=== PATIENT | male | born 1955 ===

== ENCOUNTER 2024-02-18 06:17 | Day surgery (SDC) | payer OTHER ==
[2024-02-11 11:56] LABS: PH,URINE 5.5 (5.0-8.0); URINE APPEARANCE Clear; URINE BILIRRUBIN Negative (NEGATIVE); URINE BLOOD Negative; URINE COLOR Yellow; URINE GLUCOSE Negative (NEGATIVE); URINE LEUKOCYTE Negative; URINE NITRATE Negative; URINE PROTEIN Trace (NEGATIVE); URINE UROBILINOGEN 0.2 E.U./dl
[2024-02-11 11:57] LABS: URINE WBC 2.7 uL (0.0-23.2)
[2024-02-11 12:03] LABS: URINE BACTERIA 3.7 uL (0.0-1933); URINE EPITHELIAL CELLS 1.3 uL (0.0-38.8); URINE RBC 1.7 uL (0.0-20.8)
[2024-02-11 12:10] LABS: HEMATOCRIT 42.7 % (39.0-48.0); HEMOGLOBIN 14.3 g/dL (13-16.00); MEAN CELL VOLUME 89.5 fL (80.0-100.00); MEAN CORPUSCULAR HEMOGLOBIN 29.9 pg (27.00-32.0); MEAN CORPUSCULAR HGB CONC 33.4 g/dl (32.0-36.0); PLATELET COUNT 227 K/uL (150-450); RED BLOOD COUNT 4.77 M/uL (4.00-6.00); RED CELL DISTRIBUTION WIDTH 14.5 % (11.5-14.5)
[2024-02-11 12:34] LABS: INR 1.04; PARTIAL THROMBOPLASTIN TIME 29.1 SECONDS (22.0-34.0)
[2024-02-11 12:36] LABS: PROTHROMBIN TIME 10.9 SECONDS (9.0-11.5)
[2024-02-11 12:40] LABS: ALBUMIN 4.1 gm/dL (3.4-5.0); BILIRUBIN TOTAL 0.57 mg/dL (0.3-1.2); CALCIUM 9.4 mg/dL (8.5-10.1); CREATININE SERUM 0.94 mg/dL (0.70-1.30); GFR 79.81; GLOBULINA 4.2 G/DL (2.4-3.5); POTASSIUM 5.02 mEq/L (3.5-5.1); TOTAL PROTEIN 8.3 gm/dL (6.4-8.2)
[2024-02-18] MEDS ORDERED: CEFAZOLIN SODIUM 1,000 MG VIAL ONE ×2 (11:14→15:15)
[2024-02-18] MEDS ORDERED: CEFAZOLIN SODIUM 1,000 MG VIAL IV ONE (13:45)
[2024-02-18] MEDS ORDERED: CEFAZOLIN SODIUM 1,000 MG VIAL IV SCH (14:45)
[2024-02-18] MEDS ORDERED: FAMOTIDINE/PF 20 MG/10 ML SYRINGE IV SCH (14:45)
[2024-02-18] MEDS ORDERED: FAMOTIDINE/PF 20 MG/2 ML VIAL ONE (15:15)
[2024-02-18] MEDS ORDERED: ONDANSETRON HCL 2 MG/ML VIAL IV ONE (16:05)
[2024-02-18] MEDS ORDERED: MORPHINE SULFATE 4 MG/ML VIAL IV ONE (16:10)
[2024-02-18] MEDS ORDERED: ONDANSETRON HCL 2 MG/ML VIAL ONE (16:15)
== END 2024-02-18 17:55 | disposition home or self-care (01) ==
LOC: CIR.AMB 06:17
PROVIDERS: ATTEND Specialist
DX: K40.90 Unilateral inguinal hernia, without obstruction or gangrene, not specified as recurrent (principal)
CPT/HCPCS: 49505; C1781